=== PATIENT | female | born 1990 | race Hispanic/Latino ===

== ENCOUNTER 2018-08-22 13:14 | Emergency (ER) | payer MEDICAID, SELFPAY ==
[2018-08-22 14:02] LABS: #Basophils 0.1 thou/uL (0.0-0.2); #Eosinphils 0.1 thou/uL (0.0-0.7); #Lymphocytes 2.7 thou/uL (1.20-3.40); #Monocytes 0.5 thou/uL (0.11-0.59); #Neutrophils 6.2 thou/uL (1.40-6.50); %Basophils 0.6 % (0.0-1.0); %Eosinophils 0.6 % (0.0-10.0); %Lymphocytes 28.8 % (21.0-51.0); %Monocytes 5.2 % (0.0-10.0); %Neutrophils 64.8 % (42.0-75.0); Hemoglobin 13.3 g/dL (12.0-16.0); Mean Corpuscular HGB CONC 33.2 g/dL (32.0-36.0); Mean Corpuscular Hemoglobin 27.7 pg (27.0-31.0); Mean Corpuscular Volume 83.5 fL (78.0-98.0); Mean Platelet Volume 7.2 fL (7.4-10.4); Platelet Count 246 thou/uL (130-400); RBC Distribution Width 10.2 % (11.5-14.5); White Blood Cell (WBC) Count 9.5 thou/uL (4.8-10.8)
--- NOTE | 2018-08-22 15:03 | ULT ---
PELVIC ULTRASOUND WITH DOPPLER: (Transabdominal, transvaginal, Cadena scale, and color flow Doppler) Date: 08/22/18 HISTORY: Vaginal bleeding, early intrauterine . FINDINGS: The uterus measures 9.7 x 4.8 cm. The right ovary measures 2.9 x 3.4 x 2.3 cm. The left ovary measure s 3.6 x 2.0 x 1.8 cm. Flow is demonstrated to both ovaries. There is a single intrauterine gestational sac with measurements corresponding to an estimated gestat ional age of 5 weeks/6 days. The crown-rump length measures 0.37 cm, gestational sac diameter 0.96 cm , and yolk sac diameter 0.29 cm. No heart tones are identified. There is a small amount of free fluid in the cul-de-sac. IMPRESSION: Single intrauterine gestation of 5 weeks/6 days estimated gestational age. No heart tones are s een. Correlation with serial serum beta HCG levels and follow-up ultrasound is recommended. POS: BREEZY
[2018-08-24 21:01] LABS: Chlamydia by PCR Not Detected (NotDetected); GC by PCR Not Detected (NotDetected)
== END 2018-08-22 14:48 | disposition home or self-care (01) ==
LOC: SCSER 13:14
DX: O20.0 Threatened abortion (principal)
CPT/HCPCS: 36415; 76856; 84702; 85025; 87480; 87491; 87510; 87591; 87660

== ENCOUNTER 2018-08-23 12:38 | Emergency (ER) | payer SELFPAY ==
[2018-08-23 13:24] LABS: #Eosinphils 0.1 thou/uL (0.0-0.7); #Lymphocytes 2.1 thou/uL (1.20-3.40); #Monocytes 0.5 thou/uL (0.11-0.59); #Neutrophils 6.6 thou/uL (1.40-6.50); %Basophils 0.5 % (0.0-1.0); %Eosinophils 0.6 % (0.0-10.0); %Lymphocytes 22.6 % (21.0-51.0); %Neutrophils 71.3 % (42.0-75.0); Hemoglobin 13.3 g/dL (12.0-16.0); Mean Corpuscular HGB CONC 33.1 g/dL (32.0-36.0); Mean Corpuscular Hemoglobin 27.6 pg (27.0-31.0); Mean Corpuscular Volume 83.4 fL (78.0-98.0); Mean Platelet Volume 7.1 fL (7.4-10.4); Platelet Count 246 thou/uL (130-400); RBC Distribution Width 10.4 % (11.5-14.5); Red Blood Cell (RBC) Count 4.83 mill/uL (4.20-5.40); White Blood Cell (WBC) Count 9.3 thou/uL (4.8-10.8)
[2018-08-23 13:39] LABS: ALT (SGPT) 32 U/L (8-55); AST (SGOT) 26 U/L (5-34); Albumin 4.4 g/dL (3.5-5.0); Alkaline Phosphatase 62 U/L (40-150); Anion Gap 14 mmol/L (10-20); BUN (Urea Nitrogen) 6 mg/dL (7.0-18.7); Bilirubin, Total 0.6 mg/dL (0.2-1.2); Calc. Creatinine Clearance 0 mL/min (70-130); Calcium 9.4 mg/dL (7.8-10.44); Carbon Dioxide 22 mmol/L (22-29); Chloride 107 mmol/L (98-107); Estimated GFR-MDRD Greater than 90; Globulin 3.4 g/dL (2.4-3.5); Glucose 92 mg/dL (70-105); Potassium 3.7 mmol/L (3.5-5.1); Protein, Total 7.8 g/dL (6.0-8.3); Sodium 139 mmol/L (136-145)
--- NOTE | 2018-08-23 15:41 | ULT ---
TRANSVAGINAL PELVIC ULTRASOUND WITH SPENCER SCALE AND COLOR FLOW AND SPECTRAL DOPPLER IMAGING: Date: 08/23/18 HISTORY: Heavy vaginal bleeding, elevated beta HCG. FINDINGS: The uterus measures 7.2 x 5.5 x 4.6 cm, without focal mass or endometrial fluid. No intrauterine gest ational sac is seen. Endometrium measures 2.0 mm in thickness. The right ovary measures 3.8 x 3.2 x 2.7 cm. The left ovary measures 2.9 x 2.4 x 1.8 cm. Flow is demo nstrated to both ovaries. No adnexal mass is seen. There is a small amount of free fluid adjacent to the left ovary. IMPRESSION: No evidence of intrauterine gestation. Correlation with serial serum beta HCG levels and follow-up ul trasound is recommended. POS: BREEZY
== END 2018-08-23 15:42 | disposition home or self-care (01) ==
LOC: SCSER 12:38
DX: O03.9 Complete or unspecified spontaneous abortion without complication (principal)
CPT/HCPCS: 36415; 76856; 80053; 84702; 85025; 88305

== ENCOUNTER 2019-09-26 08:28 | Outpatient (CLI) | payer OTHER ==
--- NOTE | 2019-09-26 09:18 | ULT ---
EXAM: OB ultrasound COMPARISON: None HISTORY: female. Evaluate size, dates, and anatomy. TECHNIQUE: Multiplanar grayscale and color Doppler transabdominal sonographic images are obtained. FINDINGS: There is a single intrauterine gestation in cephalic presentation. Cardiac Doppler demonstr ates heart tones with a heart rate of 149 beats per minute. The placenta is located posteriorly without evidence of placenta previa. There is a normal amount of amniotic fluid with an a mniotic fluid index of 10.8 centimeters. The cervical length based on transabdominal imaging measures 3.6 centimeters. biometry measurements: BPD 4.99 cm -- 21 weeks 1 day HC 18.3 cm -- 20 weeks 5 days AC 15.11 cm -- 20 weeks 3 days FL 3.44 cm -- 20 weeks 6 days The estimated gestational age by ultrasound is 20 weeks 6 days with an RIVAS on02/07/2020. Gestational a ge by the last menstrual period is 20 weeks 3 days. The estimated weight by ultrasound is 364 g (13 ounces). This represents 55 percentile for feta l weight. A 4 chambered heart is is not well demonstrated on provided images. The cerebellum, visualized portio ns of the spine, kidneys, and cord insertion demonstrate a normal sonographic appearance. Urinary bladder is mostly decompressed. A three-vessel cord is not visualized, but there is flow on either side of the urinary bladder sugges ting a three-vessel cord.. No anomalies are seen. IMPRESSION: 1. Single intrauterine gestation in cephalic presentation with heart tones documented. Estimat ed gestational age by ultrasound is 20 weeks 6 days. 2. Estimated weight is 364 g (13 ounces). 3. Amniotic fluid index is 10.8 centimeters.
== END 2019-09-26 08:29 | disposition home or self-care (01) ==
LOC: BICULT 08:28
PROVIDERS: ATTEND Family Medicine
DX: Z34.82 Encounter for supervision of other normal pregnancy, second trimester (principal); Z3A.20 20 weeks gestation of pregnancy
CPT/HCPCS: 76805

== ENCOUNTER 2020-02-05 18:00 | Inpatient (IN) | payer MEDICAID, OTHER ==
[2020-02-05 13:33] LABS: SARS-CoV-2 MS2 Positive; SARS-CoV-2 N Gene Negative; SARS-CoV-2 S Gene Negative; SARS-CoV-2 orf1ab Negative
[~2020-02-05 18:00] MED LIST: Bupivacaine/Epinephrine 0.25% 30 ML VIAL ONE
[2020-02-05] MEDS ORDERED: HYDROcodone/Acetaminophen 5/325 mg Tablet PO PRN (20:02)
[2020-02-05] MEDS ORDERED: Lidocaine 1% (PF) 30 ML VIAL SC PRN (20:02)
[2020-02-05] MEDS ORDERED: Promethazine HCl 25 MG/ML VIAL IM PRN (20:02)
[2020-02-05] MEDS ORDERED: Ondansetron PF 4 MG/2 ML Vial IVP PRN (20:02)
[2020-02-05] MEDS ORDERED: Diphenoxylate HCl/Atropine Tablet PO PRN (20:02)
[2020-02-05] MEDS ORDERED: NS / Oxytocin 40 units/1000ml 1,000 ML IV PRN (20:02)
[2020-02-05] MEDS ORDERED: Misoprostol 200 MCG TAB PR PRN (20:02)
[2020-02-05] MEDS ORDERED: Ibuprofen 800 MG TAB PO PRN (20:02)
[2020-02-05] MEDS ORDERED: NS w/ Oxytocin 10 units 500 ML IV SCH ×2 (20:02)
[2020-02-05] MEDS ORDERED: hydrALAZINE 20 MG/ML VIAL SLOW IVP PRN (20:02)
[2020-02-05] MEDS ORDERED: Methylergonovine 0.2 MG/ML VIAL IM PRN (20:02)
[2020-02-05] MEDS ORDERED: Carboprost 250 MCG/ML AMP IM PRN (20:02)
[2020-02-05] MEDS ORDERED: Penicillin G Potassium 5 MILL.UNITS in Sodium Chloride 0.9% 100 ML IVPB SCH (20:15)
[2020-02-05 20:16] VITALS: BMI 34.5
[2020-02-05] MEDS: Lactated Ringer's 1,000 ML IV SCH (20:16)
[2020-02-05 20:23] LABS: Hemoglobin 13.6 g/dL (12.0-16.0); Mean Corpuscular HGB CONC 35.8 g/dL (32.0-36.0); Mean Corpuscular Hemoglobin 30.9 pg (27.0-31.0); Mean Corpuscular Volume 86.2 fL (78.0-98.0); Mean Platelet Volume 7.8 fL (7.4-10.4); Platelet Count 223 thou/uL (130-400); RBC Distribution Width 11.4 % (11.5-14.5); Red Blood Cell (RBC) Count 4.39 mill/uL (4.20-5.40); White Blood Cell (WBC) Count 8.6 thou/uL (4.8-10.8)
[2020-02-05] MEDS: Misoprostol 100 MCG TAB PO SCH (20:57)
[2020-02-05 20:59] LABS: Syphilis Antibody Nonreactive (Nonreactive); Syphilis Antibody Index 0.05 S/CO (<1.00 Non-Reactive)
[2020-02-05 22:45] LABS: HBSAg Index 0.19 S/CO (0-0.99); Hep B Surf Ag Non-Reactive S/CO (NonReactive)
[2020-02-05] MEDS ORDERED: Penicillin G 2.5 MILL.units 2.5 MILL.UNITS in Premix Bag 1 BAG IVPB SCH (23:59)
[2020-02-06] MEDS: Butorphanol Tartrate 1 MG/ML VIAL SLOW IVP PRN ×2 (02:35→06:25)
[2020-02-06] MEDS: Misoprostol 100 MCG TAB PO SCH ×2 (02:43→05:01)
[2020-02-06] MEDS: Lactated Ringer's 1,000 ML IV SCH ×2 (04:16→16:03)
[2020-02-06] MEDS ORDERED: Fentanyl 4 mcg/Bup 0.1% Cadd 100 ML ONE (08:21)
[2020-02-06] MEDS ORDERED: Acetaminophen 325 MG TAB PO PRN (09:20)
[2020-02-06] MEDS ORDERED: EPHEDRINE 25 MG/5 ML SYRINGE SLOW IVP PRN (09:20)
[2020-02-06] MEDS ORDERED: Lactated Ringer's 500 ML IV PRN (09:20)
[2020-02-06] MEDS ORDERED: Ondansetron PF 4 MG/2 ML Vial IVP PRN ×2 (09:20→13:05)
[2020-02-06] MEDS ORDERED: Promethazine HCl 25 MG/ML VIAL IM PRN (09:20)
[2020-02-06] MEDS ORDERED: Naloxone HCl 0.4 mg/ml Vial IVP PRN ×2 (09:20)
[2020-02-06] MEDS ORDERED: diphenhydrAMINE 50 MG/ML VIAL IVP PRN (09:20)
[2020-02-06] MEDS ORDERED: Communication Order-Pharmacy FS PRN (09:30)
[2020-02-06] MEDS ORDERED: Fentanyl 4 mcg/Bupivacaine 0.1% Cassette 100 ML EPIDURAL SCH (09:30)
[2020-02-06] MEDS ORDERED: Lidocaine 1% (PF) 30 ML VIAL ONE (11:50)
[2020-02-06] MEDS ORDERED: NS / Oxytocin 40 units/1000ml 1,000 ML ONE (11:50)
--- NOTE | 2020-02-06 12:01 | PDOC.OPDEL ---
OB Operative/Delivery Note Delivery Dr/Surgeon: Bessie Pre-Delivery Diagnosis: medically indicated induction Procedure/Post Delivery Dx: spontaneous vaginal delivery Weeks gestation: 39 Anesthesia: epidural - Findings A Sex: male - 1 min: 9 - 5 min: 9 - Additional Findings/Plan Placenta delivered: spontaneous Repaired Obstetrical Laceration: none Estimated blood loss: 50 Compilations/Other Findings: Precipitous delivery of viable male over intact perineum. No complications. Post delivery plan: routine recovery
[2020-02-06] MEDS ORDERED: Adacel (T-DAP) 0.5 ML SYRINGE IM ONE (13:05)
[2020-02-06] MEDS ORDERED: Lanolin Ointment 7 GM TUBE TOP PRN (13:05)
[2020-02-06] MEDS ORDERED: HYDROcodone/Acetaminophen 5/325 mg Tablet PO PRN ×2 (13:05)
[2020-02-06] MEDS ORDERED: NS / Oxytocin 40 units/1000ml 1,000 ML IV SCH (13:05)
[2020-02-06] MEDS ORDERED: Milk Of Magnesia 30 ML UDCUP PO PRN (13:05)
[2020-02-06] MEDS ORDERED: diphenhydrAMINE 25 MG CAP PO PRN (13:05)
[2020-02-06] MEDS ORDERED: Bisacodyl 10 MG SUPP PR PRN (13:05)
[2020-02-06] MEDS ORDERED: hydrALAZINE 20 MG/ML VIAL SLOW IVP PRN (13:05)
[2020-02-06] MEDS: Ferrous Sulfate 325 MG TAB PO SCH (16:01)
[2020-02-06] MEDS: Ibuprofen 800 MG TAB PO SCH (22:17)
[2020-02-06] MEDS: Docusate Calcium (SURFAK) 240 MG CAP PO SCH (22:17)
[2020-02-07] MEDS: Ibuprofen 800 MG TAB PO SCH ×2 (05:52→14:24)
[2020-02-07] MEDS: Docusate Calcium (SURFAK) 240 MG CAP PO SCH (08:33)
[2020-02-07] MEDS: Ferrous Sulfate 325 MG TAB PO SCH (08:33)
[2020-02-07] MEDS ORDERED: Prenatal Vitamin 1 TAB PO SCH (09:00)
[2020-02-07 09:51] VITALS: BP 110/57; TEMP 98.1
== END 2020-02-07 17:20 | disposition home or self-care (01) | DRG 807 ==
LOC: L&D 19:37 → 3SW 02-06 15:15
PROVIDERS: ADMIT Family Medicine; ATTEND Family Medicine
PROC: 10E0XZZ Delivery of Products of Conception, External Approach (ICD-10-PCS; principal; 2020-02-06)
DX: O24.420 Gestational diabetes mellitus in childbirth, diet controlled (principal); Z37.0 Single live birth; Z3A.39 39 weeks gestation of pregnancy
CPT/HCPCS: 36415; 36416; 51702; 85027; 86780; 86850; 86900; 86901; 86922; 87340; 87635; J0595; J2001; J2590; U0003

== ENCOUNTER 2021-05-04 03:03 | Observation (INO) | payer MEDICAID, SELFPAY ==
[2021-05-04 03:22] LABS: #Basophils 0.1 thou/uL (0.0-0.2); #Eosinphils 0.1 thou/uL (0.0-0.7); #Lymphocytes 2.3 thou/uL (1.20-3.40); #Monocytes 0.8 thou/uL (0.11-0.59); #Neutrophils 6.7 thou/uL (1.40-6.50); %Basophils 0.7 % (0.0-1.0); %Eosinophils 0.6 % (0.0-10.0); %Monocytes 8.2 % (0.0-10.0); %Neutrophils 67.5 % (42.0-75.0); Mean Corpuscular HGB CONC 35.5 g/dL (32.0-36.0); Mean Corpuscular Hemoglobin 29.4 pg (27.0-31.0); Mean Corpuscular Volume 82.8 fL (78.0-98.0); Mean Platelet Volume 7.1 fL (7.4-10.4); Platelet Count 263 thou/uL (130-400); RBC Distribution Width 11.4 % (11.5-14.5); Red Blood Cell (RBC) Count 4.41 mill/uL (4.20-5.40); White Blood Cell (WBC) Count 9.9 thou/uL (4.8-10.8)
[2021-05-04 03:23] LABS: Pregnancy Test - Urine (BHCG) Negative (Negative); Pregu Control Background? CLEAR/WHITE (CLR/WHITE); Pregu Control Bar Appear? YES (CONTROL BAR); Specific Gravity 1.004 (1.002-1.036)
[2021-05-04 03:24] LABS: Bacteria/HPF None Seen HPF (None Seen); Bilirubin Negative (Negative); Blood, Urine Negative (Negative); Clarity Clear (Clear); Glucose, Urine (Dipstick) Normal (Negative); Ketone, Urine Negative (Negative); Leukocyte 75 Leu/uL (Negative); Nitrite Negative (Negative); Protein, Urine (Dipstick) Negative (Neg-Trace); RBC/HPF 0-3 HPF (0-3); Specific Gravity, Urine 1.004 (1.002-1.036); Urobilinogen Normal mg/dL (Less than 2)
[2021-05-04 03:47] LABS: ALT (SGPT) 54 U/L (8-55); AST (SGOT) 34 U/L (5-34); Albumin 4.2 g/dL (3.5-5.0); Alkaline Phosphatase 57 U/L (40-110); Anion Gap 12 mmol/L (10-20); BUN (Urea Nitrogen) 7 mg/dL (7.0-18.7); Bilirubin, Total 0.7 mg/dL (0.2-1.2); Calc. Creatinine Clearance 0 mL/min (70-130); Calcium 9.2 mg/dL (7.8-10.44); Carbon Dioxide 22 mmol/L (22-29); Chloride 106 mmol/L (98-107); Globulin 3.4 g/dL (2.4-3.5); Glucose 100 mg/dL (70-105); Lipase 10 U/L (8-78); Potassium 3.8 mmol/L (3.5-5.1); Protein, Total 7.6 g/dL (6.0-8.3); Sodium 136 mmol/L (136-145)
[2021-05-04] MEDS ORDERED: Ondansetron PF 4 MG/2 ML Vial ONE ×2 (03:49→11:04)
[2021-05-04] MEDS ORDERED: Morphine 4 MG/ML VIAL ONE (03:49)
[2021-05-04] MEDS ORDERED: Lidocaine Viscous Sol 2% 15 ml UD Cup ONE (03:49)
[2021-05-04] MEDS ORDERED: Mag-Al 1200 mg/1200 mg/30 ML UDCUP ONE (03:49)
[2021-05-04] MEDS ORDERED: Piperacillin/Tazobactam 4.5 GM in Sodium Chloride 0.9% 100 ML IVPB SCH (05:00)
[2021-05-04 05:59] LABS: SARS-CoV-2 NAA Rapid Test Not Detected (NotDetected)
[2021-05-04] MEDS ORDERED: Morphine 2 MG/ML VIAL SLOW IVP PRN (08:14)
[2021-05-04] MEDS ORDERED: Sodium Chloride 0.45% 1,000 ML IV SCH (08:15)
[2021-05-04] MEDS ORDERED: Bupivacaine 0.25% HCL 30 ML VIAL ONE (10:32)
[2021-05-04] MEDS ORDERED: Lidocaine 1% w/Epinephrine 1:100K 30 ML VIAL ONE (10:32)
[2021-05-04] MEDS ORDERED: Promethazine HCl 25 MG/ML VIAL ONE (10:44)
[2021-05-04] MEDS ORDERED: Fentanyl 100 MCG/2 ML VIAL ONE ×2 (10:44→12:57)
[2021-05-04] MEDS ORDERED: Glycopyrrolate 0.2 MG/ML 5 ML SYRINGE ONE (11:04)
[2021-05-04] MEDS ORDERED: Dexamethasone 20 MG/5 ML VIAL ONE (11:04)
[2021-05-04] MEDS ORDERED: Lidocaine 1% PF 5 ML VIAL ONE (11:04)
[2021-05-04] MEDS ORDERED: Ketorolac Tromethamine 30 MG/ML VIAL ONE (11:04)
[2021-05-04] MEDS ORDERED: Rocuronium Bromide 10 MG/ML (10ML VIAL) ONE (11:04)
[2021-05-04] MEDS ORDERED: PROPOFOL 200 MG/20 ML VIAL ONE (11:04)
[2021-05-04] MEDS ORDERED: Promethazine HCl 25 MG/ML VIAL IVPB PRN (11:58)
[2021-05-04] MEDS ORDERED: Ondansetron HCl/PF 4 MG/2 ML Vial IVP PRN (11:58)
[2021-05-04] MEDS ORDERED: Promethazine HCl 25 MG/ML VIAL IM PRN (11:58)
[2021-05-04] MEDS ORDERED: HYDROmorphone 2 MG/ML VIAL SLOW IVP PRN (12:04)
[2021-05-04] MEDS ORDERED: PACU-Morphine 4MG/ML VIAL SLOW IVP PRN (12:04)
[2021-05-04] MEDS ORDERED: Piperacillin/Tazobactam 3.375 GM in Sodium Chloride 0.9% 100 ML IVPB SCH (13:00)
[2021-05-04 13:37] VITALS: BP 136/84; TEMP 98.7
[2021-05-04] MEDS ORDERED: HYDROcodone/Acetaminophen 10/325 mg Tablet PO PRN (15:01)
== END 2021-05-04 16:19 | disposition home or self-care (01) ==
LOC: ERS 03:03 → SURG A 05:01
PROVIDERS: ADMIT Specialist; ATTEND Specialist
PROC: 0FT44ZZ Resection of Gallbladder, Percutaneous Endoscopic Approach (ICD-10-PCS; principal; 2021-05-04)
DX: K80.10 Calculus of gallbladder with chronic cholecystitis without obstruction (principal); K82.1 Hydrops of gallbladder; E66.9 Obesity, unspecified; Z68.38 Body mass index [BMI] 38.0-38.9, adult; Z20.822 Contact with and (suspected) exposure to COVID-19
CPT/HCPCS: 36415; 76705; 80053; 81003; 81015; 81025; 83690; 85025; 88304; 96365; 96366; 96375; 96376; G0378; J1100; J1885; J2270; J2405; J2543; J2550; J2704; J3010; J3490; S0020; U0002